=== PATIENT | female | born 1965 | race American Indian/Alaskan Native ===

== ENCOUNTER 2017-03-27 20:56 | Emergency (ER) | payer SELFPAY ==
[2017-03-27 21:50] VITALS: BP 172/102
[2017-03-27 22:23] LABS: Basophils # (Auto) 0.1 K/mm3 (0.0-0.1); Basophils % (Auto) 0.6 % (0.0-1.8); Eosinophils # (Auto) 0.1 K/mm3 (0.0-0.4); Eosinophils % (Auto) 1.2 % (0.0-4.3); Hematocrit 43.2 % (30.3-42.9); Hemoglobin 14.4 gm/dl (10.1-14.3); Lymphocytes # (Auto) 2.2 K/mm3 (1.2-5.4); Lymphocytes % (Auto) 24.4 % (13.4-35.0); Mean Corpuscular HGB Conc 33 % (30-34); Mean Corpuscular Hemoglobin 27 pg (28-32); Mean Corpuscular Volume 82 fl (79-97); Monocytes # (Auto) 0.4 K/mm3 (0.0-0.8); Platelet Count 173 K/mm3 (140-440); Red Blood Count 5.27 M/mm3 (3.65-5.03); Red Cell Distribution Width 13.7 % (13.2-15.2)
[2017-03-27 22:42] LABS: BUN/Creatinine Ratio 21; Blood Urea Nitrogen 15 mg/dL (7-17); Calcium 9.7 mg/dL (8.4-10.2); Hemolysis Index 16
== END 2017-03-28 00:39 | disposition left against medical advice (07) ==
LOC: EDSEX → EDBD → ED 20:56
DX: Z53.21 Procedure and treatment not carried out due to patient leaving prior to being seen by health care provider (principal)
CPT/HCPCS: 36415; 80048; 84484; 85025; 93005; 93010

== ENCOUNTER 2017-03-28 15:56 | Emergency (ER) | payer BC ==
--- NOTE | 2017-03-28 17:31 | Emergency Department Report ---
HPI - General Chief Complaint: High BP Time Seen by Provider: 03/28/17 17:14 - HPI HPI: Patient is a 51-year-old female with a history of hypertension on medication who presents to ED complaining of elevated blood pressure 2 days. Patient states she took her blood pressure medication and is still having elevated blood pressures. Patient states she is not sure of her blood pressure medication is working anymore. Patient denies chest pain, dizziness, headache, blurred vision, fever, chills, abdominal pain . ED Past Medical Hx - Past Medical History Hx Hypertension: Yes - Surgical History Additional Surgical History: hyster - Social History Smoking Status: Never Smoker Substance Use Type: None - Medications Home Medications: Home Medications Medication Instructions Recorded Confirmed Last Taken Type Losartan [Cozaar] 50 mg PO QDAY 09/04/13 09/04/13 09/04/13 08:00 History Triamter/Hctz 37.5-25 mg 1 tab PO QDAY 09/04/13 09/04/13 09/04/13 08:00 History [Maxzide-25] amLODIPine [Norvasc] 5 mg PO DAILY 09/04/13 09/04/13 09/04/13 08:00 History Ibuprofen [Motrin] 600 mg PO Q8H PRN #20 tablet 09/05/13 Unknown Rx Methocarbamol [Robaxin] 750 mg PO Q8H PRN #20 tablet 09/05/13 Unknown Rx traMADol [Ultram 50 MG tab] 50 mg PO Q6HR PRN #20 tablet 09/05/13 Unknown Rx Ibuprofen [Motrin] 800 mg PO Q8H PRN #21 tablet 08/10/14 Unknown Rx ED Review of Systems ROS: Stated complaint: HIGH B/P Other details as noted in HPI Constitutional: denies: chills, fever Eyes: denies: eye pain, eye discharge, vision change ENT: denies: ear pain, throat pain, congestion Respiratory: denies: cough, shortness of breath, wheezing Cardiovascular: denies: chest pain, palpitations Endocrine: no symptoms reported Gastrointestinal: denies: abdominal pain, nausea, diarrhea Genitourinary: denies: urgency, dysuria, discharge Musculoskeletal: denies: back pain, joint swelling, arthralgia Skin: denies: rash, lesions Neurological: denies: headache, weakness, paresthesias Psychiatric: denies: anxiety, depression Hematological/Lymphatic: denies: easy bleeding, easy bruising Physical Exam - Physical Exam Vital Signs: Vital Signs 03/28/17 17:06 Temperature 98.1 F Pulse Rate 66 Respiratory 18 Rate Blood Pressure 181/95 Blood Pressure 181/95 [Left] O2 Sat by Pulse 98 Oximetry Physical Exam: GENERAL: Alert and oriented x3, no apparent distress, Normal Gait, atraumatic. HEAD: Head is normocephalic and a-traumatic. EYES: Extra ocular muscles are intact. Pupils are equal, round, and reactive to light and accommodation. MOUTH:Mouth is well hydrated and without lesions. Tonsils nonerythematous or swollen, Uvula midline, Tongue not elevated. Mucous membranes are moist. Posterior pharynx clear, no exudate or lesions. Patent airways. NECK: Supple. Non edematous, No carotid bruits. No lymphadenopathy or thyromegaly. No C-spine tenderness LUNGS: Symetrical with respiration, No wheezing, no rales or crackles, CTAB. HEART: S1, S2 present, regular rate and rhythm without murmur, no rubs, no gallops. Non tender to palpation ABDOMEN: No organomegaly was noted,Positive bowel sounds, soft, and non- distended. . Nontender to palpation on all Quadrants, NO CVA tenderness. BACK: Full range of motion, no spinal tenderness, nontender to palpation. SKIN: Warm and dry, No lesions, No ulceration or induration present. ED Course Vital Signs 03/28/17 17:06 Temperature 98.1 F Pulse Rate 66 Respiratory 18 Rate Blood Pressure 181/95 Blood Pressure 181/95 [Left] O2 Sat by Pulse 98 Oximetry ED Medical Decision Making - Lab Data Result diagrams: 03/28/17 17:28 03/28/17 17:28 - Medical Decision Making 51-year-old female presents with elevated blood pressure ED course: CBC, CMP ordered. Labs within normal limits Patient received clonidine 0.1 in ED. ED course: I discussed the patient to follow up with primary care physician. I discussed with the patient , she may need adjustment on her blood pressure medications. I discussed the patient cannot change her blood pressure medication only her primary care physician can do that. Patient is not exhibiting any hypertension urgency or crisis. She is a symptomatic in the ED. Blood pressure reduced prior to discharge Vital signs are normal. Patient is in no acute distress. She understands all instructions given. Critical care attestation.: If time is entered above; I have spent that time in minutes in the direct care of this critically ill patient, excluding procedure time. ED Disposition Clinical Impression: Hypertension Qualifiers: Hypertension type: essential hypertension Qualified Code(s): I10 - Essential ( primary) hypertension Disposition: TO HOME OR SELFCARE Is pt being admited?: No Does the pt Need Aspirin: No Condition: Stable Instructions: Hypertension (ED) Additional Instructions: Make sure to follow up with the primary care physician as discussed for reassessment of her blood pressure medication. Take all your medications as you've been prescribed. Avoid stressful environments If you have any worsening symptoms or develop new symptoms please return to ED immediately. Referrals: LOLY TAYLOR MD [Primary Care Provider] - 3-5 Days SARINA GALLEGO MD [Referring] - 3-5 Days [facility] [Outside] - 3-5 Days [facility] [Outside] - 3-5 Days Forms: Work/School Release Form(ED) Time of Disposition: 18:23
[2017-03-28 17:40] LABS: Basophils # (Auto) 0.1 K/mm3 (0.0-0.1); Basophils % (Auto) 0.6 % (0.0-1.8); Eosinophils # (Auto) 0.1 K/mm3 (0.0-0.4); Eosinophils % (Auto) 0.7 % (0.0-4.3); Hematocrit 47.2 % (30.3-42.9); Hemoglobin 15.5 gm/dl (10.1-14.3); Lymphocytes # (Auto) 1.6 K/mm3 (1.2-5.4); Lymphocytes % (Auto) 17.6 % (13.4-35.0); Mean Corpuscular HGB Conc 33 % (30-34); Mean Corpuscular Hemoglobin 27 pg (28-32); Mean Corpuscular Volume 83 fl (79-97); Monocytes # (Auto) 0.3 K/mm3 (0.0-0.8); Monocytes % (Auto) 2.8 % (0.0-7.3); Red Blood Count 5.69 M/mm3 (3.65-5.03); Red Cell Distribution Width 13.8 % (13.2-15.2)
[2017-03-28 17:47] LABS: Platelet Count 180 K/mm3 (140-440)
[2017-03-28] MEDS ORDERED: CATAPRES PO ONE (17:52)
[2017-03-28 18:01] LABS: Alanine Aminotransferase 18 units/L (7-56); Albumin 4.2 g/dL (3.9-5); BUN/Creatinine Ratio 26; Blood Urea Nitrogen 13 mg/dL (7-17); Hemolysis Index 30
[2017-03-28 19:19] VITALS: BP 160/88
== END 2017-03-28 19:18 | disposition home or self-care (01) ==
LOC: ED 15:56
DX: I10 Essential (primary) hypertension (principal)
CPT/HCPCS: 36415; 80053; 85025; 99283